=== PATIENT | male | born 1950 | race Caucasian/White ===

== ENCOUNTER 2016-11-30 09:28 | Emergency (ER) | payer MEDICARE ==
[~2016-11-30] VITALS: Ht 180.3 cm; Wt 90.7 kg
[2016-11-30 09:28] VITALS: BP 160/80
--- NOTE | 2016-11-30 10:00 | PHYS DOC ---
Adult General Chief Complaint Chief Complaint: WRIST PAIN [facility] [employer] [facility] HPI Patient is a 66 year old male presents to the emergency department with complaints of left wrist pain. He states that he slipped on the wooden floor in her home yesterday evening and fell on outstretched hands. He states proximal 1 year ago he sustained a fracture to the same wrist. He is here now seeking evaluation. Review of Systems Review of Systems Constitutional: Denies fever or chills [] Eyes: Denies change in visual acuity, redness, or eye pain [] HENT: Denies nasal congestion or sore throat [] Respiratory: Denies cough or shortness of breath [] Cardiovascular: No additional information not addressed in HPI [] GI: Denies abdominal pain, nausea, vomiting, bloody stools or diarrhea [] : Denies dysuria or hematuria [] Musculoskeletal: Left wrist pain Integument: Denies rash or skin lesions [] Neurologic: Denies headache, focal weakness or sensory changes [] Endocrine: Denies polyuria or polydipsia [] Allergies Allergies Allergies Coded Allergies Type Severity Reaction Last Updated Verified codeine Allergy Mild "MAKES ME LOOPY" 11/30/16 Yes Physical Exam Physical Exam Constitutional: Well developed, well nourished, no acute distress, non-toxic appearance. [] Neck: Normal range of motion, no tenderness, supple, no stridor. [] Cardiovascular:Heart rate regular rhythm, no murmur [] Lungs & Thorax: Bilateral breath sounds clear to auscultation [] Skin: Warm, dry, no erythema, no rash. [] Back: No tenderness, no CVA tenderness. [] Extremities: Left wrist: Moderate swelling, obvious deformity. Pain level II when palpated. Left elbow and left hand exam unremarkable. Neurovascular intact distally. Sensation intact distally. Neurologic: Alert and oriented X 3, normal motor function, normal sensory function, no focal deficits noted. [] Full her splint placed by nursing staff: Patient tolerated procedure well. Neurovascular intact distal. Current Patient Data Vital Signs Vital Signs Date Time Temp Pulse Resp B/P (MAP) Pulse Ox O2 Delivery O2 Flow Rate FiO2 11/30/16 09:28 98.1 69 21 160/80 (106) 96 Room Air 98.1 EKG EKG [] Radiology/Procedures Radiology/Procedures [address] Villalobos, ER physician. Distal radius fracture, not angulated with minimal displacement. [] Course & Med Decision Making Course & Med Decision Making Patient will be placed in a volar splint follow-up with his orthopedic physician. Pertinent Labs and Imaging studies reviewed. (See chart for details) [] Dragon Disclaimer Dragon Disclaimer This electronic medical record was generated, in whole or in part, using a voice recognition dictation system. Departure Departure Impression: Primary Impression: Left wrist fracture Disposition: HOME, SELF-CARE Condition: STABLE Referrals: LISSETH YORK (PCP) Patient Instructions: Wrist Fracture Scripts Hydrocodone/Apap 5-325 (NORCO 5-325 TABLET) 1 Each Tablet 1 TAB PO TID Y for PAIN, #15 TAB Prov: OCTAVIO SORTO APRN 11/30/16 OCTAVIO SORTO APRN Nov 30, 2016 10:00
[2016-11-30] MEDS ORDERED: HYDR-971 PO (10:27)
--- NOTE | 2016-11-30 10:37 | RAD ---
Indication fall, pain. AP oblique and lateral views of the left wrist were obtained. There is a traumatic, impacted, fracture involving the radial metaphysis. There are both vertical and horizontal fracture components. Vertical components extend to the articular surface. There is some moderate angulation additionally noted associated with the fracture. Ulnar styloid fracture is also noted. IMPRESSION: Fractured radial metaphysis and ulnar styloid
== END 2016-11-30 11:07 | disposition home or self-care (01) ==
LOC: ER 09:28
DX: S52.592A Other fractures of lower end of left radius, initial encounter for closed fracture (principal); S52.612A Displaced fracture of left ulna styloid process, initial encounter for closed fracture; Z88.5 Allergy status to narcotic agent; W01.0XXA Fall on same level from slipping, tripping and stumbling without subsequent striking against object, initial encounter; Y93.89 Activity, other specified; Y92.098 Other place in other non-institutional residence as the place of occurrence of the external cause; Y99.8 Other external cause status
CPT/HCPCS: 29125; 73110; 99284-25